=== PATIENT | female | born 1960 | race Caucasian/White ===

== ENCOUNTER 2017-03-18 21:49 | Observation (INO) | payer OTHER ==
[2017-03-18] MEDS ORDERED: SODIUM CHLORIDE 0.9% 500 ML IV STA (22:38)
[2017-03-18] MEDS ORDERED: LORazepam 2 MG/ML SYRINGE IV STA (22:38)
[2017-03-18] MEDS ORDERED: HYDROmorphone 1 MG/ML 1 ML SYRINGE IVP STA (22:38)
[2017-03-18] MEDS ORDERED: KETOROLAC 30 MG/ML 1 ML VIAL IVP STA (23:19)
[2017-03-18] MEDS ORDERED: ORPHENADRINE 30 MG/ML 2 ML VIAL IM STA (23:20)
[2017-03-18 23:21] LABS: Anisocytosis Slight; CH 24.8; CHCM 30.8; HCT 23.4 % (34.0-46.0); HGB 7.4 gm/dL (11.4-16.0); Hypochromasia Moderate; MCH 25.6 pg (25.0-35.0); MCHC 31.8 g/dL (31.0-37.0); MCV 80.7 fL (80.0-100.0); Mean Platelet Volume 6.8; Microcytosis Slight; RDW 16.7 % (11.5-15.5); WBC 4.2 k/uL (3.8-10.6); WBC (Perox) 4.45
[2017-03-18 23:38] LABS: Add Differential Manual Differential
[2017-03-18 23:40] LABS: Manual Review Performed; Nucleated Red Blood Cells 0 /100 WBC (0-0); Total Cells Counted 100
[2017-03-19 00:01] LABS: Anisocytosis Slight; Basophils % (A) 0 %; CH 25.2; CHCM 32.6; Eosinophils # (A) 0.2 k/uL (0-0.7); Eosinophils % (A) 3 %; HCT 39.7 % (34.0-46.0); HDW 2.81; Luc % (Auto) 1; Lymphocytes # (A) 1.7 k/uL (1.0-4.8); Lymphocytes % (A) 19 %; MCHC 32.3 g/dL (31.0-37.0); MCV 77.4 fL (80.0-100.0); Microcytosis Slight; Monocytes # (A) 0.5 k/uL (0-1.0); Monocytes % (A) 5 %; Neutrophils # (A) 6.3 k/uL (1.3-7.7); Neutrophils % (A) 72 %; RBC 5.12 m/uL (3.80-5.40); RDW 16.8 % (11.5-15.5); WBC 8.8 k/uL (3.8-10.6); WBC (Perox) 8.92
--- NOTE | 2017-03-19 00:03 | ED ---
General Adult HPI - General Chief complaint: Chest Pain Stated complaint: Chest Pain Time Seen by Provider: 03/18/17 22:17 Source: patient Mode of arrival: wheelchair Limitations: no limitations - History of Present Illness Initial comments: This patient is a 56-year-old woman who presents with complaint of having right shoulder pain and also spasms to her neck, back, and chest wall. The patient states that this been going on since she had a right shoulder replacement in September, by Dr. Staton. The patient states that she has had MRI of the neck and back, neurology consultation, resulting in her starting on gabapentin, and pain management consultation. The patient states that none of this seems to be helping and as a spasming was severe tonight she comes to have pain relief here. The patient denies weakness or numbness of the right upper severity. -: month(s) Location: upper extremity (Right) Severity scale (1-10): 10 Quality: aching Consistency: constant Improves with: none Worsens with: none Associated Symptoms: denies other symptoms Treatments Prior to Arrival: none - Related Data Home Medications Medication Instructions Recorded Confirmed Amitriptyline HCl 25 mg PO DAILY 04/23/16 03/18/17 Albuterol Sulfate [Proventil Hfa] 2 puff INHALATION RT-Q4H PRN 04/24/16 03/18/17 Ibuprofen [Motrin] 800 mg PO Q8H PRN 04/24/16 03/18/17 Fexofenadine HCl 180 mg PO DAILY 05/14/16 03/18/17 Fluticasone Propionate 1 spray EA NOSTRIL DAILY 07/06/16 03/18/17 HYDROcodone/APAP 5-325MG [[place] 5] 1 tab PO Q8H PRN 07/06/16 03/18/17 Gabapentin [Neurontin] 300 mg PO TID 03/18/17 03/18/17 Metoclopramide (Unknown Dose) 1 tab PO Q8H 03/18/17 03/18/17 Tetrahydrozoline 0.05% Ophth 1 drop BOTH EYES QID PRN 03/18/17 03/18/17 [Visine Eye Drops] Allergies Allergy/AdvReac Type Severity Reaction Status Date / Time diclofenac sodium Allergy Rash/Hives Verified 03/18/17 21:56 [From Voltaren] hydrocodone bitartrate Allergy Unknown Verified 03/18/17 21:56 [From Vicodin] Iodinated Contrast Media - Allergy Unknown Verified 03/18/17 21:56 Oral and [Iodinated Contrast Media - IV Dye] latex Allergy Rash/Hives Verified 03/18/17 21:56 lorazepam Allergy Dyspnea Verified 03/18/17 21:56 Opioids - Morphine Analogues Allergy Unknown Verified 03/18/17 21:56 Sulfa (Sulfonamide Allergy Dyspnea Verified 03/18/17 21:56 Antibiotics) temazepam Allergy Unknown Verified 03/18/17 21:56 tramadol Allergy Unknown Verified 03/18/17 21:56 trazodone Allergy Rash/Hives Verified 03/18/17 21:56 zolpidem tartrate Allergy Unknown Verified 03/18/17 21:56 [From Ambien] diazepam [From Valium] AdvReac Diarrhea Verified 03/18/17 21:56 povidone-iodine AdvReac Unknown Verified 03/18/17 21:56 [From Betadine] soap [From Betadine] AdvReac Unknown Verified 03/18/17 21:56 Review of Systems ROS Statement: Those systems with pertinent positive or pertinent negative responses have been documented in the HPI. ROS Other: All systems not noted in ROS Statement are negative. Constitutional: Denies: fever, chills, weakness Respiratory: Denies: cough, dyspnea Cardiovascular: Denies: chest pain, palpitations, syncope Gastrointestinal: Denies: abdominal pain, nausea, vomiting Genitourinary: Denies: dysuria Musculoskeletal: Reports: as per HPI, back pain, arthralgia, myalgia. Denies: joint swelling Skin: Denies: rash Neurological: Denies: headache, weakness, numbness, paresthesias Past Medical History Past Medical History: Asthma Additional Past Medical History / Comment(s): chronic back pain, constipation, ibs, sciatica, on metformin for weight loss History of Any Multi-Drug Resistant Organisms: None Reported Past Surgical History: Appendectomy, Cholecystectomy, Orthopedic Surgery Additional Past Surgical History / Comment(s): arm and lower leg, facial sx, c -section Past Anesthesia/Blood Transfusion Reactions: No Reported Reaction Past Psychological History: Anxiety, Panic Disorder, PTSD Smoking Status: Never smoker Past Alcohol Use History: None Reported Past Drug Use History: None Reported - Past Family History Father Family Medical History: Myocardial Infarction ([place]) Additional Family Medical History / Comment(s): 4 bypasses, pacemaker Mother Family Medical History: No Reported History General Exam Limitations: no limitations Course Vital Signs 03/18/17 03/18/17 03/18/17 21:53 22:03 23:00 Temperature 98.0 F Pulse Rate 137 H 117 H 92 Respiratory 18 20 18 Rate Blood Pressure 143/88 159/103 140/80 O2 Sat by Pulse 97 97 96 Oximetry 03/19/17 00:00 Temperature Pulse Rate 97 Respiratory 18 Rate Blood Pressure 155/76 O2 Sat by Pulse 97 Oximetry Medical Decision Making - Lab Data Result diagrams: 03/18/17 23:50 03/18/17 23:50 Lab Results 03/18/17 03/18/17 03/18/17 Range/Units 22:51 23:00 23:34 WBC 4.2 (3.8-10.6) k/uL RBC 2.90 L (3.80-5.40) m/uL Hgb 7.4 L (11.4-16.0) gm/dL Hct 23.4 L (34.0-46.0) % MCV 80.7 (80.0-100.0) fL MCH 25.6 (25.0-35.0) pg MCHC 31.8 (31.0-37.0) g/dL RDW 16.7 H (11.5-15.5) % Plt Count 145 L (150-450) k/uL Neutrophils % Not Reportable Neutrophils % (Manual) 66.0 % Lymphocytes % Not Reportable Lymphocytes % (Manual) 28.0 % Monocytes % Not Reportable Monocytes % (Manual) 4.0 % Eosinophils % Not Reportable Eosinophils % (Manual) 2.0 % Basophils % Not Reportable Neutrophils # Not Reportable Neutrophils # (Manual) 2.8 (1.3-7.7) k/uL Lymphocytes # Not Reportable Lymphocytes # (Manual) 1.2 (1.0-4.8) k/uL Monocytes # Not Reportable Monocytes # (Manual) 0.2 (0-1.0) k/uL Eosinophils # Not Reportable Eosinophils # (Manual) 0.1 (0-0.7) k/uL Basophils # Not Reportable Nucleated RBCs 0 (0-0) /100 WBC Manual Slide Review Performed Hypochromasia Moderate Anisocytosis Slight Microcytosis Slight ESR Cancelled 9 D-Dimer 0.72 H (<0.60) mg/L FEU Sodium (137-145) mmol/L Potassium (3.5-5.1) mmol/L Chloride (98-107) mmol/L Carbon Dioxide (22-30) mmol/L Anion Gap mmol/L BUN (7-17) mg/dL Creatinine (0.52-1.04) mg/dL Est GFR (MDRD) Af Amer (>60 ml/min/1.73 sqM) Est GFR (MDRD) Non-Af (>60 ml/min/1.73 sqM) Glucose (74-99) mg/dL Calcium (8.4-10.2) mg/dL C-Reactive Protein (<10.0) mg/L 03/18/17 03/18/17 Range/Units 23:50 23:50 WBC 8.8 (3.8-10.6) k/uL RBC 5.12 (3.80-5.40) m/uL Hgb 12.8 D (11.4-16.0) gm/dL Hct 39.7 (34.0-46.0) % MCV 77.4 L (80.0-100.0) fL MCH 25.0 (25.0-35.0) pg MCHC 32.3 (31.0-37.0) g/dL RDW 16.8 H (11.5-15.5) % Plt Count 279 (150-450) k/uL Neutrophils % 72 Neutrophils % (Manual) % Lymphocytes % 19 Lymphocytes % (Manual) % Monocytes % 5 Monocytes % (Manual) % Eosinophils % 3 Eosinophils % (Manual) % Basophils % 0 Neutrophils # 6.3 Neutrophils # (Manual) (1.3-7.7) k/uL Lymphocytes # 1.7 Lymphocytes # (Manual) (1.0-4.8) k/uL Monocytes # 0.5 Monocytes # (Manual) (0-1.0) k/uL Eosinophils # 0.2 Eosinophils # (Manual) (0-0.7) k/uL Basophils # 0.0 Nucleated RBCs (0-0) /100 WBC Manual Slide Review Hypochromasia Anisocytosis Slight Microcytosis Slight ESR D-Dimer (<0.60) mg/L FEU Sodium 143 (137-145) mmol/L Potassium 4.3 (3.5-5.1) mmol/L Chloride 109 H (98-107) mmol/L Carbon Dioxide 22 (22-30) mmol/L Anion Gap 12 mmol/L BUN 20 H (7-17) mg/dL Creatinine 0.70 (0.52-1.04) mg/dL Est GFR (MDRD) Af Amer >60 (>60 ml/min/1.73 sqM) Est GFR (MDRD) Non-Af >60 (>60 ml/min/1.73 sqM) Glucose 113 H (74-99) mg/dL Calcium 10.1 (8.4-10.2) mg/dL C-Reactive Protein 11.4 H (<10.0) mg/L Disposition Clinical Impression: Chest pain, Pulmonary nodule, right Disposition: ADMITTED IP TO THIS HOSP Condition: Fair Referrals: Sheela Rojas MD [Primary Care Provider] - 1-2 days
[2017-03-19 00:10] LABS: HGB 12.8 gm/dL (11.4-16.0)
[2017-03-19 00:24] LABS: Anion Gap 12 mmol/L; Blood Urea Nitrogen 20 mg/dL (7-17); C Reactive Protein 11.4 mg/L (<10.0); Calcium 10.1 mg/dL (8.4-10.2); Carbon Dioxide 22 mmol/L (22-30); Chloride 109 mmol/L (98-107); Glucose 113 mg/dL (74-99); Non-African American GFR(MDRD) >60 (>60 ml/min/1.73 sqM); Potassium 4.3 mmol/L (3.5-5.1); Sodium 143 mmol/L (137-145)
[2017-03-19] MEDS ORDERED: RX INFO: IV CONTRAST WAS GIVEN 1 EACH MISC MISCELLANE PRN (00:33)
[2017-03-19] MEDS ORDERED: methylPREDNISolone SOD SUCCI 125 MG/2 ML VIAL IV STA (00:34)
[2017-03-19] MEDS ORDERED: FAMOTIDINE 20 MG/2 ML VIAL IV STA (00:34)
[2017-03-19] MEDS ORDERED: diphenhydrAMINE 50 MG/ML 1 ML VIAL IVP STA (00:34)
[2017-03-19] MEDS ORDERED: HYDROmorphone 1 MG/ML 1 ML SYRINGE IVP STA (01:01)
--- NOTE | 2017-03-19 02:37 | CT ---
INDICATION: Chest pain TECHNIQUE: CT acquisition was performed through the chest per institutional CT angiogram protocol following the administration of IV contrast. Multiplanar reformatted images including coronal and sagittal MIPS reconstructed images were provided. This CT exam was performed using one or more of the following dose reduction techniques: automated exposure control, adjustment of the mA and/or kV according to patient size, and/or use of iterative reconstruction technique. DOSIMETRY: DLP 755.70 mGy-cm; CTDIvol 122.70 mGy. COMPARISON: Chest radiograph 07/06/16 FINDINGS: Technically suboptimal examination due to transient interruption of contrast. No evidence of large central pulmonary embolism. Subsegmental branch vessels are inadequately evaluated. Normal caliber main pulmonary artery. No evidence of right heart strain. Thoracic aorta normal in course and caliber. There is cardiomegaly without evidence of pericardial effusion. There is no adenopathy by size criteria. There is a small sliding-type hiatal hernia. There are regional subpleural reticulations in the bilateral lower lobes, right middle lobe, and bilateral upper lobes. There are multiple scattered pulmonary micronodules. There is a 3 mm pulmonary micronodule in the right upper lobe (7-55). There is a 3 mm subpleural pulmonary micronodule in the right middle lobe and a 3 mm subpleural nodule in the lingula (7-73). There is an 8 mm subpleural pulmonary nodule in the right middle lobe (7-79. There are subpleural pulmonary nodules in the left lower lobe measuring 4 mm (7-91) and 5 mm (7-93). There is no pleural effusion or pneumothorax. Limited visualization of the upper abdomen demonstrates hepatomegaly and steatosis, prior cholecystectomy, and mild spinal likely measuring 13.3 cm. There are no acute osseous findings. IMPRESSION: 1. Technically suboptimal exam due to transient interruption of contrast. No evidence of central pulmonary embolus. Subsegmental emboli not excluded. 2. Multifocal bilateral subpleural reticulations, concerning for early interstitial lung disease such as UIP, NSIP, or DIP. Consider further workup in coordination with pulmonology consultation. 3. Multiple pulmonary nodules, as detailed above, the largest in the right middle lobe measuring 8 mm. Correlate with risk factors. CT follow-up in 6-12 months is recommended.
[2017-03-19] MEDS ORDERED: ONDANSETRON 4 MG/2 ML VIAL IVP PRN (02:47)
[2017-03-19] MEDS ORDERED: NALOXONE 0.4 MG/ML 1 ML VIAL IV PRN (02:47)
[2017-03-19] MEDS ORDERED: IBUPROFEN 400 MG TAB PO PRN (02:47)
[2017-03-19] MEDS ORDERED: DOCUSATE 100 MG CAP PO PRN (02:47)
[2017-03-19] MEDS ORDERED: SODIUM CHLORIDE 0.9% 1,000 ML IV SCH (03:00)
[2017-03-19] MEDS ORDERED: BACLOFEN 10 MG TAB PO PRN (03:04)
[2017-03-19 04:21] VITALS: BMI 33.3
[2017-03-19] MEDS: MORPHINE SULFATE 4 MG/ML SYRINGE IV PRN ×3 (04:33→13:46)
[2017-03-19] MEDS ORDERED: diphenhydrAMINE 50 MG/ML 1 ML VIAL IVP PRN (04:43)
[2017-03-19] MEDS: HYDROcodone/APAP 5-325MG 1 EACH TAB PO PRN ×2 (06:59→12:08)
[2017-03-19 07:16] VITALS: BP 159/74; PULSE 93; RESP 18; TEMP 97.9
[2017-03-19] MEDS: HEPARIN SODIUM,PORCINE 5,000 UNIT/ML 1 ML VIAL SQ SCH ×2 (08:12→16:21)
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
[2017-03-19] MEDS ORDERED: oxyCODONE-APAP 7.5-325MG 1 EACH TAB PO PRN (15:54)
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
--- NOTE | 2017-03-19 21:44 | HP ---
This is H&P and Discharge summary. DATE OF ADMISSION: 03/19/2017 Patient is a non-Estonian speaking female, does speak broken Estonian, came in with complaints of severe right shoulder pain. Patient has a rotator cuff surgery by Dr. Staton and the patient apparently complained of shortness of breath as well for which although patient does not have any objective signs of respiratory distress or respiratory failure. The patient was evaluated by pulmonology also, ruled out pulmonary embolism. Her main issue was severe spasms in the right hand and unable to lift up the hand and patient was referred to pain management clinic that is Dr. Stevens's clinic and patient had multiple interventions and imaging studies in the right hand and patient is basically admitted for pain management and neurology was consulted here. Patient is still complaining of spasms. All the work-up is negative except the patient has mostly musculoskeletal issues. Patient will be discharged on Percocet and Soma. Extensive counseling regarding excessive use of these medications was provided and patient initially, we had extensive discussion regarding narcotic over use was provided. Patient also takes medications for opiate-induced constipation. Last bowel movement was yesterday. After extensive counseling regarding the over use of narcotics, the patient will be discharged on Percocet and soma for her muscle spasms ( ). Patient also does take anti-inflammatory. Patient is supposed to take Cymbalta for neuropathic pain which she is not taking. Patient does take Robaxin for spasms and also Mobic for pain. REVIEW OF SYSTEMS: CONSTITUTIONAL: No fever, no malaise, no fatigue. HEENT: No recent visual problems or hearing problems. Denied any sore throat. CARDIOVASCULAR: No chest pain, orthopnea, PND, no palpitations, no syncope. PULMONARY: No shortness of breath, no cough, no hemoptysis. GASTROINTESTINAL: No diarrhea, no nausea, no vomiting, no abdominal pain. Normoactive bowel sounds. NEUROLOGICAL: No headaches, no weakness, no numbness. HEMATOLOGICAL: Denies any bleeding or petechiae. GENITOURINARY: Denies any burning micturition, frequency, or urgency. MUSCULOSKELETAL/RHEUMATOLOGICAL: as described in history of present illness. ENDOCRINE: Denies any polyuria or polydipsia. The rest of the 14 point review of systems is negative. PAST MEDICAL HISTORY: Asthma, severe osteoarthritis. Chronic low back pain and constipation, opiate-induced constipation for which patient takes Linzess and sciatic in the past. SOCIAL HISTORY: Denied any smoking, alcohol abuse. FAMILY HISTORY: Father had myocardial infarction. PHYSICAL EXAMINATION: VITAL SIGNS: Temperature 97.9, pulse of 93, respiratory rate of 18, blood pressure is 159/74, saturating at 97% on room air. GENERAL: The patient is alert and oriented x3, not in any acute distress. Well developed, well nourished. HEENT: Pupils are round and equally reacting to light. EOMI. No scleral icterus. No conjunctival pallor. Normocephalic, atraumatic. No pharyngeal erythema. No thyromegaly. CARDIOVASCULAR: S1 and S2 present. No murmurs, rubs, or gallops. PULMONARY: Chest is clear to auscultation, no wheezing or crackles. ABDOMEN: Soft, nontender, nondistended, normoactive bowel sounds. No palpable organomegaly. MUSCULOSKELETAL: Passive and active motions are restricted in the right hand. I did not see any active muscle spasms. Patient has a scar consistent with her previous rotator cuff surgery. EXTREMITIES: No cyanosis, clubbing, or pedal edema. NEUROLOGICAL: Gross neurological examination did not reveal any focal deficits. SKIN: No rashes. LABORATORY DATA: CBC, CMP: No significant abnormality. CT angio of the chest negative for pulmonary embolism. ASSESSMENT AND PLAN: 1. Right shoulder pain management as mentioned above patient will be discharged today. 2. Dyspnea secondary to anxiety. 3. Bronchial asthma without any acute exacerbation. 4. Constipation opiate and use for which patient is on Linzess. 5. Posttraumatic stress disorder. 6. Follow up with primary care physician psychiatrist as an outpatient. Patient will be discharged today with follow with Dr. Stevens, Dr. Sheela Rojas, activity as tolerated. Regular diet. Patient is on a lot of muscle relaxants and antidepressants and opiates. Counseling regarding over usage of these medications was provided. HERMAN
== END 2017-03-19 18:17 | disposition home or self-care (01) ==
LOC: EC 21:49 → 3OBS 03-19 02:47
PROVIDERS: ADMIT Internal Medicine; ATTEND Internal Medicine
DX: R07.89 Other chest pain (principal); M62.830 Muscle spasm of back; M25.511 Pain in right shoulder; J45.909 Unspecified asthma, uncomplicated; F43.10 Post-traumatic stress disorder, unspecified; F41.0 Panic disorder [episodic paroxysmal anxiety]; K58.9 Irritable bowel syndrome, unspecified; M54.5 Low back pain; M54.30 Sciatica, unspecified side; G89.29 Other chronic pain; R91.1 Solitary pulmonary nodule; M62.838 Other muscle spasm; M19.90 Unspecified osteoarthritis, unspecified site; E66.9 Obesity, unspecified; K59.03 Drug induced constipation; T40.605A Adverse effect of unspecified narcotics, initial encounter; Z68.33 Body mass index [BMI] 33.0-33.9, adult; Z96.611 Presence of right artificial shoulder joint; Z79.899 Other long term (current) drug therapy; Z79.84 Long term (current) use of oral hypoglycemic drugs; Z88.5 Allergy status to narcotic agent; Z82.49 Family history of ischemic heart disease and other diseases of the circulatory system; Z88.2 Allergy status to sulfonamides; Z88.8 Allergy status to other drugs, medicaments and biological substances; Z91.041 Radiographic dye allergy status; Z79.51 Long term (current) use of inhaled steroids
CPT/HCPCS: 96376 ×2; 96372; 96375 ×3; 96361; 96374; 99285; 36415; 85379; 80048; 85652; 85025; 86140; 71275; G0378; J2270; J1200; J1644; J2360; J2930; Q9967; J1885; J1170 ×2

== ENCOUNTER 2017-03-23 17:01 | Emergency (ER) | payer OTHER ==
[2017-03-23] MEDS ORDERED: MORPHINE SULFATE 4 MG/ML SYRINGE IVP STA (18:38)
[2017-03-23] MEDS ORDERED: DIAZEPAM 5 MG/ML 2 ML SYRINGE IVP STA (18:38)
[2017-03-23 18:55] LABS: Anisocytosis Slight; Basophils % (A) 1 %; CHCM 30.5; Eosinophils # (A) 0.2 k/uL (0-0.7); Eosinophils % (A) 3 %; HDW 2.56; HGB 13.8 gm/dL (11.4-16.0); Hypochromasia Moderate; Luc # (Auto) 0.18; Luc % (Auto) 2; Lymphocytes # (A) 2.4 k/uL (1.0-4.8); Lymphocytes % (A) 26 %; MCH 25.7 pg (25.0-35.0); MCHC 31.3 g/dL (31.0-37.0); MCV 82.2 fL (80.0-100.0); Mean Platelet Volume 6.8; Monocytes # (A) 0.5 k/uL (0-1.0); Monocytes % (A) 5 %; Neutrophils # (A) 5.9 k/uL (1.3-7.7); Neutrophils % (A) 64 %; RBC 5.35 m/uL (3.80-5.40); RDW 16.8 % (11.5-15.5); WBC 9.2 k/uL (3.8-10.6); WBC (Perox) 8.84
[2017-03-23 19:15] LABS: Anion Gap 13 mmol/L; Blood Urea Nitrogen 17 mg/dL (7-17); Carbon Dioxide 26 mmol/L (22-30); Chloride 105 mmol/L (98-107); Glucose 131 mg/dL (74-99); Non-African American GFR(MDRD) >60 (>60 ml/min/1.73 sqM); Sodium 144 mmol/L (137-145)
[2017-03-23] MEDS ORDERED: KETOROLAC 30 MG/ML 1 ML VIAL IVP STA ×2 (19:52→20:00)
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
[2017-03-23 21:14] VITALS: BP 142/72; PULSE 106; RESP 20; TEMP 98.5
== END 2017-03-23 21:18 | disposition home or self-care (01) ==
LOC: EC 17:01
DX: F41.9 Anxiety disorder, unspecified (principal); M62.830 Muscle spasm of back; J45.909 Unspecified asthma, uncomplicated; M19.90 Unspecified osteoarthritis, unspecified site; Z88.2 Allergy status to sulfonamides; Z88.6 Allergy status to analgesic agent; Z91.040 Latex allergy status; Z91.041 Radiographic dye allergy status; Z88.5 Allergy status to narcotic agent; Z88.8 Allergy status to other drugs, medicaments and biological substances; Z88.3 Allergy status to other anti-infective agents; Z79.51 Long term (current) use of inhaled steroids; Z79.84 Long term (current) use of oral hypoglycemic drugs; Z79.1 Long term (current) use of non-steroidal anti-inflammatories (NSAID); Z79.899 Other long term (current) drug therapy
CPT/HCPCS: 99284; 96374; 96375 ×2; 36415; 93005; 80048; 85025; J2270; J3360; J1885

== ENCOUNTER 2017-04-10 04:09 | Emergency (ER) | payer OTHER ==
[2017-04-10] MEDS ORDERED: MORPHINE SULFATE 4 MG/ML SYRINGE IM STA (04:36)
[2017-04-10] MEDS ORDERED: ORPHENADRINE 30 MG/ML 2 ML VIAL IM STA (04:36)
[2017-04-10 05:29] VITALS: RESP 18
--- NOTE | 2017-04-10 05:35 | ED ---
General Adult HPI - General Chief complaint: Shortness of Breath Stated complaint: SOB/Stiffness Time Seen by Provider: 04/10/17 04:15 Source: patient Mode of arrival: wheelchair Limitations: no limitations - History of Present Illness Initial comments: This patient is a 56-year-old woman who presents tonight for a constellation of symptoms. She is having spasms to the back shoulder and chest on the right side , she feels like she is having a hard time catching her breath, and she is feeling sweaty. The patient does note that she has a history of chronic pain to the right neck and shoulder. She has been taking [place] 10 mg for a long time and has been out of this for going on 2 days now. She was seen here for similar symptoms approximately 2 weeks ago. One of the problems is that the patient is in the process of changing neurologists, because she had been seen Dr. Stevens and he wanted to treat her with an implantable pain pump, but she would prefer to avoid this procedure and so she was scheduled with the neurologist in [place] on but had been not feeling well and can make the trip there. She does have one with him on Wednesday. -: hour(s) Location: chest, back, right, upper extremity Severity scale (1-10): 10 Quality: aching Consistency: constant Improves with: none Worsens with: none Associated Symptoms: denies other symptoms Treatments Prior to Arrival: none - Related Data Home Medications Medication Instructions Recorded Confirmed Amitriptyline HCl 25 mg PO QID 04/23/16 03/23/17 Albuterol Sulfate [Proventil Hfa] 2 puff INHALATION RT-Q4H PRN 04/24/16 03/23/17 Ibuprofen [Motrin] 800 mg PO TID PRN 04/24/16 03/23/17 Fexofenadine HCl 180 mg PO DAILY 05/14/16 03/23/17 Fluticasone Propionate 1 spray EA NOSTRIL DAILY 07/06/16 03/23/17 Gabapentin [Neurontin] 300 mg PO TID 03/18/17 03/23/17 Tetrahydrozoline 0.05% Ophth 1 drop BOTH EYES QID PRN 03/18/17 03/23/17 [Visine Eye Drops] ALPRAZolam [Xanax] 1 mg PO TID PRN 03/19/17 03/23/17 DULoxetine HCL [Cymbalta] 30 mg PO BID 03/19/17 03/23/17 Linaclotide [Linzess] 290 mcg PO DAILY 03/19/17 03/23/17 Meloxicam [Mobic] 7.5 mg PO DAILY 03/19/17 03/23/17 Methocarbamol [Robaxin-750] 750 mg PO Q8H PRN 03/19/17 03/23/17 Naloxegol Oxalate [Movantik] 25 mg PO QAM 03/19/17 03/23/17 hydrOXYzine PAMOATE [Vistaril] 25 - 50 mg PO Q4-6H PRN 03/19/17 03/23/17 metFORMIN HCL [Metformin HCl] 500 mg PO DAILY 03/19/17 03/23/17 Previous Rx's Medication Instructions Recorded Baclofen [Lioresal] 10 mg PO TID PRN #20 tab 03/19/17 Carisoprodol [Soma] 350 mg PO TID PRN #20 tab 03/19/17 oxyCODONE-APAP 7.5-325MG [Percocet 1 tab PO Q6HR PRN #30 tab 03/19/17 7.5-325 mg] Baclofen 10 mg PO TID PRN #20 tab 03/23/17 Carisoprodol [Soma] 350 mg PO TID #14 tab 03/23/17 oxyCODONE HCL/ACETAMINOPHEN 1 tab PO Q6HR #14 tab 03/23/17 [Percocet 7.5-325 mg] Hydrocodone/Acetaminophen [[place] 1 each PO Q6HR PRN #8 tab 04/10/17 5-325] Allergies Allergy/AdvReac Type Severity Reaction Status Date / Time diclofenac sodium Allergy Rash/Hives Verified 04/10/17 04:21 [From Voltaren] hydrocodone bitartrate Allergy Unknown Verified 04/10/17 04:21 [From Vicodin] Iodinated Contrast Media - Allergy Swelling Verified 04/10/17 04:21 Oral and [Iodinated Contrast Media - IV Dye] latex Allergy Rash/Hives Verified 04/10/17 04:21 lorazepam Allergy Dyspnea Verified 04/10/17 04:21 Sulfa (Sulfonamide Allergy Anaphylaxis Verified 04/10/17 04:21 Antibiotics) temazepam Allergy Rash/Hives Verified 04/10/17 04:21 tramadol Allergy Rash/Hives Verified 04/10/17 04:21 trazodone Allergy Rash/Hives Verified 04/10/17 04:21 zolpidem tartrate Allergy Itching Verified 04/10/17 04:21 [From Ambien] diazepam [From Valium] AdvReac Itching Verified 04/10/17 04:21 povidone-iodine AdvReac Rash/Hives Verified 04/10/17 04:21 [From Betadine] soap [From Betadine] AdvReac Rash/Hives Verified 04/10/17 04:21 Review of Systems ROS Statement: Those systems with pertinent positive or pertinent negative responses have been documented in the HPI. ROS Other: All systems not noted in ROS Statement are negative. Constitutional: Reports: chills, other (Flash) Respiratory: Denies: cough, dyspnea Cardiovascular: Denies: chest pain, palpitations, syncope Gastrointestinal: Reports: nausea. Denies: abdominal pain Genitourinary: Denies: dysuria Musculoskeletal: Reports: arthralgia, myalgia Skin: Denies: rash Neurological: Denies: headache, weakness, numbness, paresthesias Psychiatric: Reports: anxiety Past Medical History Past Medical History: Asthma, Osteoarthritis (OA) Additional Past Medical History / Comment(s): chronic back pain, constipation, ibs, sciatica, on metformin for weight loss History of Any Multi-Drug Resistant Organisms: None Reported Past Surgical History: Appendectomy, Cholecystectomy, Orthopedic Surgery Additional Past Surgical History / Comment(s): arm and lower leg, facial sx, c -section Past Anesthesia/Blood Transfusion Reactions: No Reported Reaction Past Psychological History: Anxiety, Panic Disorder, PTSD Smoking Status: Never smoker Past Alcohol Use History: None Reported Past Drug Use History: None Reported - Past Family History Father Family Medical History: Myocardial Infarction ([place]) Additional Family Medical History / Comment(s): 4 bypasses, pacemaker Mother Family Medical History: No Reported History General Exam Limitations: no limitations General appearance: alert, in distress Head exam: Present: atraumatic, normocephalic Eye exam: Present: normal appearance. Absent: scleral icterus, conjunctival injection Neck exam: Present: normal inspection, full ROM Respiratory exam: Present: normal lung sounds bilaterally, chest wall tenderness. Absent: respiratory distress, wheezes, rales, rhonchi, stridor Cardiovascular Exam: Present: normal rhythm, tachycardia, normal heart sounds. Absent: systolic murmur, diastolic murmur, rubs, gallop GI/Abdominal exam: Present: soft, hyperactive bowel sounds. Absent: distended, tenderness, guarding, rebound, rigid Extremities exam: Present: normal inspection, tenderness (Right shoulder), normal capillary refill. Absent: pedal edema, calf tenderness Back exam: Present: normal inspection. Absent: CVA tenderness (R), CVA tenderness (L) Neurological exam: Present: alert Skin exam: Present: warm, dry, intact, normal color. Absent: rash Course Vital Signs 04/10/17 04/10/17 04/10/17 04:14 04:34 05:28 Temperature 97.7 F Pulse Rate 117 H 90 Respiratory 24 20 18 Rate Blood Pressure 195/95 148/77 O2 Sat by Pulse 91 L 93 L Oximetry 04/10/17 05:47 Temperature 97.5 F L Pulse Rate 91 Respiratory 18 Rate Blood Pressure 137/78 O2 Sat by Pulse 95 Oximetry Disposition Clinical Impression: Chronic pain Disposition: HOME SELF-CARE Condition: Fair Instructions: Chronic Pain (ED) Prescriptions: Hydrocodone/Acetaminophen [[place] 5-325] 1 each PO Q6HR PRN #8 tab PRN Reason: Pain Referrals: Sheela Rojas MD [Primary Care Provider] - 1-2 days
[2017-04-10 05:50] VITALS: BP 137/78; PULSE 91; TEMP 97.5
== END 2017-04-10 05:51 | disposition home or self-care (01) ==
LOC: EC 04:09
DX: G89.29 Other chronic pain (principal); M25.511 Pain in right shoulder; M54.2 Cervicalgia; R06.02 Shortness of breath; R00.0 Tachycardia, unspecified; M19.90 Unspecified osteoarthritis, unspecified site; F41.0 Panic disorder [episodic paroxysmal anxiety]; K58.9 Irritable bowel syndrome, unspecified; Z79.899 Other long term (current) drug therapy; Z79.84 Long term (current) use of oral hypoglycemic drugs; Z79.1 Long term (current) use of non-steroidal anti-inflammatories (NSAID); Z88.5 Allergy status to narcotic agent; Z91.040 Latex allergy status; Z88.2 Allergy status to sulfonamides; Z91.041 Radiographic dye allergy status; Z88.6 Allergy status to analgesic agent; Z88.8 Allergy status to other drugs, medicaments and biological substances; Z91.048 Other nonmedicinal substance allergy status; Z87.19 Personal history of other diseases of the digestive system
CPT/HCPCS: 99284; 96372 ×2; J2270; J2360; 93005

== ENCOUNTER 2017-04-11 09:44 | Emergency (ER) | payer OTHER ==
[2017-04-11 09:52] VITALS: TEMP 98
[2017-04-11] MEDS ORDERED: HYDROmorphone 1 MG/ML 1 ML SYRINGE IM STA (10:58)
--- NOTE | 2017-04-11 11:03 | ED ---
General Adult HPI - General Chief complaint: Recheck/Abnormal Lab/Rx Stated complaint: chronic pain Time Seen by Provider: 04/11/17 10:42 Source: patient, RN notes reviewed Mode of arrival: wheelchair Limitations: no limitations - History of Present Illness Initial comments: 56-year-old female presents to the emergency department with a chief complaint of flareup of her chronic pain. Patient states that she suffers from chronic pain and normally takes baclofen as well as [place]. Patient states she's been IV since . Patient states that Dr. Stevens her neurologist wanted to put her on a morphine drip and she does not want that so she is scheduled a second opinion for tomorrow to further evaluate her pain situation. Patient states that now her pain has gotten so intense She is not her pain medication. Patient states her muscle spasms which is chronic squeeze her body make her feel like it's hard to breathe. Patient states is exactly like her typical flareup pain. Patient states that her pain at home which is not helping so she thought that she should be evaluated.Patient denies any recent fever, chills, shortness of breath, chest pain, back pain, abdominal pain, nausea vomiting, numbness or tingling, dysuria or hematuria, constipation or diarrhea, headaches or visual changes, or any other current symptoms. - Related Data Home Medications Medication Instructions Recorded Confirmed Amitriptyline HCl 25 mg PO QID 04/23/16 04/11/17 Albuterol Sulfate [Proventil Hfa] 2 puff INHALATION RT-Q4H PRN 04/24/16 04/11/17 Ibuprofen [Motrin] 800 mg PO TID PRN 04/24/16 04/11/17 Fexofenadine HCl 180 mg PO DAILY 05/14/16 04/11/17 Fluticasone Propionate 1 spray EA NOSTRIL DAILY 07/06/16 04/11/17 Gabapentin [Neurontin] 300 mg PO TID 03/18/17 04/11/17 Tetrahydrozoline 0.05% Ophth 1 drop BOTH EYES QID PRN 03/18/17 04/11/17 [Visine Eye Drops] ALPRAZolam [Xanax] 1 mg PO TID PRN 03/19/17 04/11/17 DULoxetine HCL [Cymbalta] 30 mg PO BID 03/19/17 04/11/17 Linaclotide [Linzess] 290 mcg PO DAILY 03/19/17 04/11/17 Meloxicam [Mobic] 7.5 mg PO DAILY 03/19/17 04/11/17 Methocarbamol [Robaxin-750] 750 mg PO Q8H PRN 03/19/17 04/11/17 Naloxegol Oxalate [Movantik] 25 mg PO QAM 03/19/17 04/11/17 hydrOXYzine PAMOATE [Vistaril] 25 - 50 mg PO Q4-6H PRN 03/19/17 04/11/17 metFORMIN HCL [Metformin HCl] 500 mg PO DAILY 03/19/17 04/11/17 Hydrocodone/Acetaminophen [[place] 1 tab PO Q6HR PRN 04/11/17 04/11/17 5-325] Previous Rx's Medication Instructions Recorded Baclofen [Lioresal] 10 mg PO TID PRN #20 tab 03/19/17 Carisoprodol [Soma] 350 mg PO TID PRN #20 tab 03/19/17 oxyCODONE-APAP 7.5-325MG [Percocet 1 tab PO Q6HR PRN #30 tab 03/19/17 7.5-325 mg] Allergies Allergy/AdvReac Type Severity Reaction Status Date / Time diclofenac sodium Allergy Rash/Hives Verified 04/11/17 10:13 [From Voltaren] hydrocodone bitartrate Allergy Unknown Verified 04/11/17 10:13 [From Vicodin] Iodinated Contrast Media - Allergy Swelling Verified 04/11/17 10:13 Oral and [Iodinated Contrast Media - IV Dye] latex Allergy Rash/Hives Verified 04/11/17 10:13 lorazepam Allergy Dyspnea Verified 04/11/17 10:13 Sulfa (Sulfonamide Allergy Anaphylaxis Verified 04/11/17 10:13 Antibiotics) temazepam Allergy Rash/Hives Verified 04/11/17 10:13 tramadol Allergy Rash/Hives Verified 04/11/17 10:13 trazodone Allergy Rash/Hives Verified 04/11/17 10:13 zolpidem tartrate Allergy Itching Verified 04/11/17 10:13 [From Ambien] diazepam [From Valium] AdvReac Itching Verified 06/18/17 10:13 povidone-iodine AdvReac Rash/Hives Verified 04/11/17 10:13 [From Betadine] soap [From Betadine] AdvReac Rash/Hives Verified 04/11/17 10:13 Review of Systems ROS Statement: Those systems with pertinent positive or pertinent negative responses have been documented in the HPI. ROS Other: All systems not noted in ROS Statement are negative. Past Medical History Past Medical History: Asthma, Osteoarthritis (OA) Additional Past Medical History / Comment(s): chronic back pain, constipation, ibs, sciatica, on metformin for weight loss History of Any Multi-Drug Resistant Organisms: None Reported Past Surgical History: Appendectomy, Cholecystectomy, Orthopedic Surgery Additional Past Surgical History / Comment(s): arm and lower leg, facial sx, c -section Past Anesthesia/Blood Transfusion Reactions: No Reported Reaction Past Psychological History: Anxiety, Panic Disorder, PTSD Smoking Status: Never smoker Past Alcohol Use History: None Reported Past Drug Use History: None Reported - Past Family History Father Family Medical History: Myocardial Infarction ([place]) Additional Family Medical History / Comment(s): 4 bypasses, pacemaker Mother Family Medical History: No Reported History General Exam Limitations: no limitations General appearance: alert, in no apparent distress ENT exam: Present: normal exam, mucous membranes moist Neck exam: Present: normal inspection. Absent: tenderness, meningismus, lymphadenopathy Respiratory exam: Present: normal lung sounds bilaterally. Absent: respiratory distress, wheezes, rales, rhonchi, stridor Cardiovascular Exam: Present: regular rate, normal rhythm, normal heart sounds. Absent: systolic murmur, diastolic murmur, rubs, gallop, clicks Back exam: Present: normal inspection, full ROM. Absent: tenderness, rash noted Neurological exam: Present: alert, oriented X3 Psychiatric exam: Present: normal affect, normal mood Skin exam: Present: warm, dry, intact, normal color. Absent: rash Course Vital Signs 04/11/17 09:49 Temperature 98.0 F Pulse Rate 95 Respiratory 20 Rate Blood Pressure 198/108 O2 Sat by Pulse 99 Oximetry Medical Decision Making - Medical Decision Making 56 yo Old female presents with flareup of her chronic pain At this time we give the patient injections and she is having improvement. This time we discussed continuing follow-up tomorrow. All patient's questions. She stated that she understood and she is. She will be discharged home. Disposition Clinical Impression: Chronic pain Disposition: HOME SELF-CARE Condition: Stable Instructions: Chronic Pain (ED) Additional Instructions: Please use medication as discussed. Please follow up with family doctor if symptoms have not improved over the next two days. Please return to the emergency room if your symptoms increase or worsen or for any other concerns. Referrals: Sheela Rojas MD [Primary Care Provider] - 1-2 days Time of Disposition: 11:46
[2017-04-11] MEDS: ORPHENADRINE 30 MG/ML 2 ML VIAL IM STA ×2 (11:12→12:07)
[2017-04-11 12:15] VITALS: BP 166/87; PULSE 98; RESP 18
== END 2017-04-11 12:15 | disposition home or self-care (01) ==
LOC: EC 09:44
DX: G89.29 Other chronic pain (principal); M54.9 Dorsalgia, unspecified; M19.90 Unspecified osteoarthritis, unspecified site; J45.909 Unspecified asthma, uncomplicated; K58.9 Irritable bowel syndrome, unspecified; F41.9 Anxiety disorder, unspecified; F43.10 Post-traumatic stress disorder, unspecified; Z79.1 Long term (current) use of non-steroidal anti-inflammatories (NSAID); Z79.51 Long term (current) use of inhaled steroids; Z79.84 Long term (current) use of oral hypoglycemic drugs; Z79.899 Other long term (current) drug therapy; Z88.2 Allergy status to sulfonamides; Z88.5 Allergy status to narcotic agent; Z88.6 Allergy status to analgesic agent; Z88.8 Allergy status to other drugs, medicaments and biological substances; Z91.040 Latex allergy status; Z91.041 Radiographic dye allergy status; Z91.048 Other nonmedicinal substance allergy status
CPT/HCPCS: 99283; 96372 ×2; J2360; J1170

== ENCOUNTER 2017-04-13 11:51 | Emergency (ER) | payer OTHER ==
[2017-04-13 12:18] VITALS: RESP 18
[2017-04-13] MEDS ORDERED: HYDROcodone/APAP 5-325MG 1 EACH TAB PO STA (12:30)
[2017-04-13] MEDS ORDERED: predniSONE 20 MG TAB PO STA (12:30)
--- NOTE | 2017-04-13 12:37 | ED ---
General Adult HPI - General Chief complaint: Recheck/Abnormal Lab/Rx Stated complaint: Itchy skin Time Seen by Provider: 04/13/17 12:09 Source: patient, family, RN notes reviewed Mode of arrival: wheelchair Limitations: no limitations - History of Present Illness Initial comments: Patient is a pleasant 56-year-old female presenting to the emergency Department with complaints of fullness of her throat and itchy skin. Patient did see a pain specialist yesterday and was prescribed morphine sulfate. Patient states she has a known ALLERGY to both sulfa and sulfates. Patient has chronic pain. Patient has pain involving her back and sciatica and right shoulder. Patient is to be on [place] without any problems. Patient admits to feeling anxious regarding her pain. Patient repeatedly discusses her pain medication history. - Related Data Home Medications Medication Instructions Recorded Confirmed Amitriptyline HCl 25 mg PO QID 04/23/16 04/13/17 Albuterol Sulfate [Proventil Hfa] 2 puff INHALATION RT-Q4H PRN 04/24/16 04/13/17 Ibuprofen [Motrin] 800 mg PO TID PRN 04/24/16 04/13/17 Fexofenadine HCl 180 mg PO DAILY 05/14/16 04/13/17 Fluticasone Propionate 1 spray EA NOSTRIL DAILY 07/06/16 04/13/17 Gabapentin [Neurontin] 300 mg PO TID 03/18/17 04/13/17 Tetrahydrozoline 0.05% Ophth 1 drop BOTH EYES QID PRN 03/18/17 04/13/17 [Visine Eye Drops] ALPRAZolam [Xanax] 1 mg PO TID PRN 03/19/17 04/13/17 DULoxetine HCL [Cymbalta] 30 mg PO BID 03/19/17 04/13/17 Linaclotide [Linzess] 290 mcg PO DAILY 03/19/17 04/13/17 Meloxicam [Mobic] 7.5 mg PO DAILY 03/19/17 04/13/17 Methocarbamol [Robaxin-750] 750 mg PO Q8H PRN 03/19/17 04/13/17 Naloxegol Oxalate [Movantik] 25 mg PO QAM 03/19/17 04/13/17 hydrOXYzine PAMOATE [Vistaril] 25 - 50 mg PO Q4-6H PRN 03/19/17 04/13/17 metFORMIN HCL [Metformin HCl] 500 mg PO DAILY 03/19/17 04/13/17 Hydrocodone/Acetaminophen [[place] 1 tab PO Q6HR PRN 04/11/17 04/13/17 5-325] Cyclobenzaprine [Flexeril] 10 mg PO TID 04/13/17 04/13/17 Diclofenac Sodium [Voltaren] 75 mg PO BID 04/13/17 04/13/17 Morphine Sulfate Ir [Msir] 15 mg PO Q8H PRN 04/13/17 04/13/17 Previous Rx's Medication Instructions Recorded Baclofen [Lioresal] 10 mg PO TID PRN #20 tab 03/19/17 Carisoprodol [Soma] 350 mg PO TID PRN #20 tab 03/19/17 oxyCODONE-APAP 7.5-325MG [Percocet 1 tab PO Q6HR PRN #30 tab 03/19/17 7.5-325 mg] predniSONE 20 mg PO DAILY #3 tab 04/13/17 Allergies Allergy/AdvReac Type Severity Reaction Status Date / Time diclofenac sodium Allergy Rash/Hives Verified 04/13/17 12:06 [From Voltaren] hydrocodone bitartrate Allergy Unknown Verified 04/13/17 12:06 [From Vicodin] Iodinated Contrast Media - Allergy Swelling Verified 04/13/17 12:06 Oral and [Iodinated Contrast Media - IV Dye] latex Allergy Rash/Hives Verified 04/13/17 12:06 lorazepam Allergy Dyspnea Verified 04/13/17 12:06 Sulfa (Sulfonamide Allergy Anaphylaxis Verified 04/13/17 12:06 Antibiotics) temazepam Allergy Rash/Hives Verified 04/13/17 12:06 tramadol Allergy Rash/Hives Verified 04/13/17 12:06 trazodone Allergy Rash/Hives Verified 04/13/17 12:06 zolpidem tartrate Allergy Itching Verified 04/13/17 12:06 [From Ambien] diazepam [From Valium] AdvReac Itching Verified 04/13/17 12:06 povidone-iodine AdvReac Rash/Hives Verified 04/13/17 12:06 [From Betadine] soap [From Betadine] AdvReac Rash/Hives Verified 04/13/17 12:06 Review of Systems ROS Statement: Those systems with pertinent positive or pertinent negative responses have been documented in the HPI. ROS Other: All systems not noted in ROS Statement are negative. Constitutional: Denies: fever Eyes: Denies: eye pain ENT: Denies: ear pain Respiratory: Denies: cough Cardiovascular: Denies: chest pain Endocrine: Denies: fatigue Gastrointestinal: Denies: abdominal pain Genitourinary: Denies: dysuria Musculoskeletal: Reports: back pain, arthralgia Skin: Denies: rash Neurological: Denies: confusion Past Medical History Past Medical History: Asthma, Osteoarthritis (OA) Additional Past Medical History / Comment(s): chronic back pain, constipation, ibs, sciatica, on metformin for weight loss History of Any Multi-Drug Resistant Organisms: None Reported Past Surgical History: Appendectomy, Cholecystectomy, Orthopedic Surgery Additional Past Surgical History / Comment(s): arm and lower leg, facial sx, c -section Past Anesthesia/Blood Transfusion Reactions: No Reported Reaction Past Psychological History: Anxiety, Panic Disorder, PTSD Smoking Status: Never smoker Past Alcohol Use History: None Reported Past Drug Use History: None Reported - Past Family History Father Family Medical History: Myocardial Infarction ([place]) Additional Family Medical History / Comment(s): 4 bypasses, pacemaker Mother Family Medical History: No Reported History General Exam Limitations: no limitations General appearance: alert, in no apparent distress Head exam: Present: atraumatic Eye exam: Present: normal appearance, PERRL ENT exam: Present: normal oropharynx Neck exam: Present: normal inspection Respiratory exam: Present: normal lung sounds bilaterally. Absent: respiratory distress Cardiovascular Exam: Present: tachycardia GI/Abdominal exam: Present: soft. Absent: tenderness Extremities exam: Present: normal inspection Neurological exam: Present: alert Psychiatric exam: Present: normal affect, normal mood Skin exam: Present: normal color Course Vital Signs 04/13/17 04/13/17 11:53 12:13 Temperature 97.5 F L Pulse Rate 118 H Respiratory 20 18 Rate Blood Pressure 141/83 O2 Sat by Pulse 97 Oximetry EKG Findings - EKG Comments: EKG Findings:: Sinus tachycardia 112. CA 182. QRS 76. QT 338. QTC 461. Normal axis. Normal QRS. No acute ST change. Disposition Clinical Impression: Encounter for medication refill, Allergic reaction Disposition: HOME SELF-CARE Condition: Stable Instructions: Chronic Pain (ED), Medicine Refill (ED) Additional Instructions: Please follow-up with your orthopedic doctor or one of your two pain medication doctors today or tomorrow. Return for worsening or change in symptoms or other concerns. Continue Benadryl Prescriptions: predniSONE 20 mg PO DAILY #3 tab Referrals: Sheela Rojas MD [Primary Care Provider] - 1-2 days Jacob Staton MD [REFERRING] - 1-2 days Chelita Stevens MD [STAFF PHYSICIAN] - 1-2 days
[2017-04-13 12:43] VITALS: BP 171/70; PULSE 108; TEMP 98.4
== END 2017-04-13 12:53 | disposition home or self-care (01) ==
LOC: EC 11:51
DX: T78.40XA Allergy, unspecified, initial encounter (principal); J45.909 Unspecified asthma, uncomplicated; Z88.2 Allergy status to sulfonamides; Z91.040 Latex allergy status; Z88.8 Allergy status to other drugs, medicaments and biological substances; Z88.5 Allergy status to narcotic agent; Z91.041 Radiographic dye allergy status; Z91.09 Other allergy status, other than to drugs and biological substances; Z79.51 Long term (current) use of inhaled steroids; Z79.84 Long term (current) use of oral hypoglycemic drugs; Z79.1 Long term (current) use of non-steroidal anti-inflammatories (NSAID); Z79.899 Other long term (current) drug therapy
CPT/HCPCS: 99283; 93005; J7512

== ENCOUNTER 2017-05-10 19:44 | Emergency (ER) | payer OTHER ==
[2017-05-10 20:01] VITALS: RESP 18; TEMP 99.3
[2017-05-10] MEDS ORDERED: predniSONE 20 MG TAB PO STA (20:21)
[2017-05-10] MEDS ORDERED: HYDROcodone/APAP 5-325MG 1 EACH TAB PO STA (20:21)
[2017-05-10] MEDS ORDERED: KETOROLAC 30 MG/ML 1 ML VIAL IVP STA (20:21)
--- NOTE | 2017-05-10 20:38 | ED ---
Back Pain HPI - General Chief Complaint: Back Pain/Injury Stated Complaint: back pain Source: EMS Limitations: no limitations - History of Present Illness Initial Comments: Patient is a 56-year-old female resents for evaluation for acute on chronic upper back pain. Past medical history as below. Patient has been evaluated are facility several times in the past for identical symptoms. She states that her symptoms are 10 out of 10. Exactly like previous exacerbations. She has been evaluated by multiple physicians in the past. Including pain specialist in other cities, neurologist, family physicians, orthopedic surgeons. She states that there is been no change in her symptom quality or characteristic. However, she states that the pain is more intense. She states that she has some associated nausea. Per chart review, the patient describes having identical symptoms in the past. She states that she's been out of her pain medications over the past week. She states that she does have prescriptions of Flexeril and Soma though. Dr. Stevens is offered an epidural/pain pump in the past but the patient refused. They're trying to get into their previous orthopedic surgeon but is not available until the end of May. The patient states that she cannot wait until then. She currently denies fever, chills, headache, changes in vision, URI symptoms, shortness of breath, cough, chest pain, vomiting, diarrhea, pain or burning with urination. In addition, the patient denies any symptoms suggestive cauda equina. No fevers , no midline tenderness, no numbness to the groin, no urinary or stool incontinence, no change in her numbness or pain to her lower charities. - Related Data Home Medications Medication Instructions Recorded Confirmed Fexofenadine HCl 180 mg PO DAILY 05/14/16 05/10/17 Gabapentin [Neurontin] 300 mg PO TID 03/18/17 05/10/17 Linaclotide [Linzess] 290 mcg PO DAILY 03/19/17 05/10/17 Morphine Sulfate Ir [Msir] 15 mg PO Q8H PRN 04/13/17 05/10/17 Previous Rx's Medication Instructions Recorded Baclofen [Lioresal] 10 mg PO TID PRN #20 tab 03/19/17 Carisoprodol [Soma] 350 mg PO TID PRN #20 tab 03/19/17 Allergies Allergy/AdvReac Type Severity Reaction Status Date / Time diclofenac sodium Allergy Rash/Hives Verified 05/10/17 20:39 [From Voltaren] hydrocodone bitartrate Allergy Unknown Verified 05/10/17 20:39 [From Vicodin] Iodinated Contrast- Oral and Allergy Swelling Verified 05/10/17 20:39 IV Dye [Iodinated Contrast Media - IV Dye] latex Allergy Rash/Hives Verified 05/10/17 20:39 lorazepam Allergy Dyspnea Verified 05/10/17 20:39 Sulfa (Sulfonamide Allergy Anaphylaxis Verified 05/10/17 20:39 Antibiotics) temazepam Allergy Rash/Hives Verified 05/10/17 20:39 tramadol Allergy Rash/Hives Verified 05/10/17 20:39 trazodone Allergy Rash/Hives Verified 05/10/17 20:39 zolpidem tartrate Allergy Itching Verified 05/10/17 20:39 [From Ambien] diazepam [From Valium] AdvReac Itching Verified 05/10/17 20:39 povidone-iodine AdvReac Rash/Hives Verified 05/10/17 20:39 [From Betadine] soap [From Betadine] AdvReac Rash/Hives Verified 05/10/17 20:39 Review of Systems ROS Statement: Those systems with pertinent positive or pertinent negative responses have been documented in the HPI. ROS Other: All systems not noted in ROS Statement are negative. Past Medical History Past Medical History: Asthma, Osteoarthritis (OA) Additional Past Medical History / Comment(s): chronic back pain, constipation, ibs, sciatica, on metformin for weight loss History of Any Multi-Drug Resistant Organisms: None Reported Past Surgical History: Appendectomy, Cholecystectomy, Orthopedic Surgery Additional Past Surgical History / Comment(s): arm and lower leg, facial sx, c -section Past Anesthesia/Blood Transfusion Reactions: No Reported Reaction Past Psychological History: Anxiety, Panic Disorder, PTSD Smoking Status: Never smoker Past Alcohol Use History: None Reported Past Drug Use History: None Reported - Past Family History Father Family Medical History: Myocardial Infarction ([place]) Additional Family Medical History / Comment(s): 4 bypasses, pacemaker Mother Family Medical History: No Reported History General Exam Limitations: no limitations General appearance: alert, in no apparent distress, other (Resting comfortably in the stretcher. We'll sit up from a leg back position and twist her back with no apparent distress.) Head exam: Present: atraumatic, normocephalic, normal inspection Eye exam: Present: normal appearance, PERRL, EOMI. Absent: scleral icterus, conjunctival injection, periorbital swelling ENT exam: Present: normal exam, mucous membranes moist Neck exam: Present: normal inspection. Absent: tenderness, meningismus, lymphadenopathy Respiratory exam: Present: normal lung sounds bilaterally. Absent: respiratory distress, wheezes, rales, rhonchi, stridor Cardiovascular Exam: Present: regular rate, normal rhythm, normal heart sounds. Absent: systolic murmur, diastolic murmur, rubs, gallop, clicks GI/Abdominal exam: Present: soft, normal bowel sounds, other (Abdomen is soft and nontender. No peritoneal signs.). Absent: distended, tenderness, guarding , rebound, rigid Extremities exam: Present: normal inspection, full ROM, normal capillary refill. Absent: tenderness, pedal edema, joint swelling, calf tenderness Back exam: Present: normal inspection, other (No midline cervical/thoracic/ lumbar midline tenderness. She did have some paraspinal tenderness on the right upper back by the scapula.) Neurological exam: Present: alert, oriented X3, CN II-XII intact, other ( Cranial nerves II through XII are grossly intact without focal neurological deficits. She is not altered. 5 out of 5 strength of the upper or lower extremities. Sensation intact in all 4 extremities.) Psychiatric exam: Present: normal affect, normal mood Skin exam: Present: warm, dry, intact, normal color. Absent: rash Course Vital Signs 05/10/17 05/10/17 19:54 21:55 Temperature 99.3 F Pulse Rate 79 82 Respiratory 18 18 Rate Blood Pressure 138/71 162/85 O2 Sat by Pulse 96 97 Oximetry Medical Decision Making - Medical Decision Making 2005: Patient is a 56 year old female who presents with acute on chronic upper back pain. She states that her symptoms are 100% identical to her previous exacerbations. She has no signs or symptoms that are consistent with cauda equina syndrome at this time. I had a lengthy discussion with her and her about the need for only one physician to be prescribing her pain narcotics. They've been having trouble having other physicians fill her pain narcotics. He refused a non-narcotic intervention by Dr. Shuayto. They're trying to get in for evaluation I her orthopedic surgeon who they have preferred in the past. I discussed my hesitancy to provide any long-term narcotic prescriptions until they are evaluated by the orthopedic surgeon which is at the end of May. I stated that I would treat her pain with the regimen that I used on last visit in August 2016 as she stated worked for her in the past. This included a dose of [place] and steroids. The patient's at bedside also requested a shot of Toradol which is also seem to help her in the past. I agreed. I will order basic blood work and an EKG. They're comfortable with this plan. 2045: Reviewed EKG. Normal sinus rhythm at 68. DE 164. QRS 82. QTc 429. No ST changes. Similar to previous EKGs in the past. 2199: Laboratory studies as below. Largely unremarkable or at baseline. I reevaluated the patient. Patient now states that she is having midline chest pain radiating to hger left chest based on her hand movement. Last stress test was 2 years ago. Very confrontational. Frequent interruptions while I was trying to evaluate the patient. Patient now states that she is never had chest pain like this before in the past. I discussed that her troponin was negative and her EKG was nonischemic and similar to previous. Patient adamantly refuses going home. Will order 162 mg chewable aspirin. Page 2 admitting physician per PCP preference. 2240: Discussed case with Dr. Deluca. Agrees to observation. Requesting consult to cardiology. 2315: Notified by nursing staff that the patient left AGAINST MEDICAL ADVICE. Did not give a specific reason why. Not in the room when I went to go discuss. - Lab Data Result diagrams: 05/10/17 20:50 05/10/17 20:50 Lab Results 05/10/17 05/10/17 05/10/17 Range/Units 20:50 20:50 20:50 WBC 11.5 H (3.8-10.6) k/uL RBC 4.76 (3.80-5.40) m/uL Hgb 12.0 (11.4-16.0) gm/dL Hct 38.1 (34.0-46.0) % MCV 80.0 (80.0-100.0) fL MCH 25.3 (25.0-35.0) pg MCHC 31.6 (31.0-37.0) g/dL RDW 15.2 (11.5-15.5) % Plt Count 264 (150-450) k/uL Neutrophils % 71 % Lymphocytes % 18 % Monocytes % 6 % Eosinophils % 3 % Basophils % 1 % Neutrophils # 8.2 H (1.3-7.7) k/uL Lymphocytes # 2.1 (1.0-4.8) k/uL Monocytes # 0.7 (0-1.0) k/uL Eosinophils # 0.3 (0-0.7) k/uL Basophils # 0.1 (0-0.2) k/uL Hypochromasia Slight Sodium 139 (137-145) mmol/L Potassium 4.6 (3.5-5.1) mmol/L Chloride 107 (98-107) mmol/L Carbon Dioxide 21 L (22-30) mmol/L Anion Gap 11 mmol/L BUN 19 H (7-17) mg/dL Creatinine 0.73 (0.52-1.04) mg/dL Est GFR (MDRD) Af Amer >60 (>60 ml/min/1.73 sqM) Est GFR (MDRD) Non-Af >60 (>60 ml/min/1.73 sqM) Glucose 87 (74-99) mg/dL Calcium 9.1 (8.4-10.2) mg/dL Total Bilirubin 0.4 (0.2-1.3) mg/dL AST 27 (14-36) U/L ALT 39 (9-52) U/L Alkaline Phosphatase 99 (38-126) U/L Troponin I <0.012 (0.000-0.034) ng/mL Total Protein 6.5 (6.3-8.2) g/dL Albumin 3.9 (3.5-5.0) g/dL Disposition Clinical Impression: Chest pain, Chronic back pain, Left against medical advice Disposition: ADMITTED IP TO THIS [facility] Condition: Fair Referrals: Sheela Rojas MD [Primary Care Provider] - 1-2 days Decision to Admit Reason: Admit from EC
[2017-05-10 21:14] LABS: Basophils # (A) 0.1 k/uL (0-0.2); Basophils % (A) 1 %; CH 25.3; CHCM 31.8; Eosinophils # (A) 0.3 k/uL (0-0.7); Eosinophils % (A) 3 %; HCT 38.1 % (34.0-46.0); HDW 2.65; Hypochromasia Slight; Luc # (Auto) 0.13; Luc % (Auto) 1; Lymphocytes # (A) 2.1 k/uL (1.0-4.8); Lymphocytes % (A) 18 %; MCH 25.3 pg (25.0-35.0); MCHC 31.6 g/dL (31.0-37.0); Mean Platelet Volume 7.3; Monocytes # (A) 0.7 k/uL (0-1.0); Monocytes % (A) 6 %; Neutrophils # (A) 8.2 k/uL (1.3-7.7); Neutrophils % (A) 71 %; RBC 4.76 m/uL (3.80-5.40); RDW 15.2 % (11.5-15.5); WBC 11.5 k/uL (3.8-10.6); WBC (Perox) 11.22
[2017-05-10 21:25] LABS: ALT 39 U/L (9-52); AST 27 U/L (14-36); Alkaline Phosphatase 99 U/L (38-126); Anion Gap 11 mmol/L; Blood Urea Nitrogen 19 mg/dL (7-17); Calcium 9.1 mg/dL (8.4-10.2); Carbon Dioxide 21 mmol/L (22-30); Chloride 107 mmol/L (98-107); Glucose 87 mg/dL (74-99); Non-African American GFR(MDRD) >60 (>60 ml/min/1.73 sqM); Potassium 4.6 mmol/L (3.5-5.1); Sodium 139 mmol/L (137-145); Total Bilirubin 0.4 mg/dL (0.2-1.3); Total Protein 6.5 g/dL (6.3-8.2)
[2017-05-10 21:56] VITALS: BP 162/85; PULSE 82
[2017-05-10] MEDS ORDERED: ASPIRIN 81 MG CHEW PO STA (22:02)
[2017-05-10] MEDS ORDERED: HYDROmorphone 1 MG/ML 1 ML SYRINGE IVP STA (22:02)
[2017-05-10] MEDS ORDERED: NALOXONE 0.4 MG/ML 1 ML VIAL IV PRN (22:43)
== END 2017-05-10 22:58 | disposition left against medical advice (07) ==
LOC: EC 19:44 → UNDOADMOB 22:45 → 3OBS 22:45 → EC 22:58
DX: R07.9 Chest pain, unspecified (principal); M54.9 Dorsalgia, unspecified; R11.0 Nausea; G89.29 Other chronic pain; K58.9 Irritable bowel syndrome, unspecified; M19.90 Unspecified osteoarthritis, unspecified site; Z79.899 Other long term (current) drug therapy; Z88.5 Allergy status to narcotic agent; Z91.040 Latex allergy status; Z88.2 Allergy status to sulfonamides; Z88.8 Allergy status to other drugs, medicaments and biological substances; Z91.041 Radiographic dye allergy status; Z88.6 Allergy status to analgesic agent; Z91.048 Other nonmedicinal substance allergy status; Z87.19 Personal history of other diseases of the digestive system
CPT/HCPCS: 99284; 96374; 96375; 36415; 93005; 80053; 84484; 85025; J1885; J1170; J7512

== ENCOUNTER 2019-03-15 12:27 | Observation (INO) | payer OTHER ==
[2019-03-15 12:51] LABS: Basophils % (A) 0 %; Eosinophils # (A) 0.2 k/uL (0-0.7); Eosinophils % (A) 3 %; HCT 44.9 % (34.0-46.0); HGB 14.3 gm/dL (11.4-16.0); Lymphocytes # (A) 1.9 k/uL (1.0-4.8); Lymphocytes % (A) 25 %; MCH 27.5 pg (25.0-35.0); MCHC 31.8 g/dL (31.0-37.0); MCV 86.5 fL (80.0-100.0); Mean Platelet Volume 7.5; Monocytes # (A) 0.3 k/uL (0-1.0); Monocytes % (A) 4 %; Neutrophils # (A) 4.9 k/uL (1.3-7.7); Neutrophils % (A) 66 %; Platelet Count 235 k/uL (150-450); RBC 5.19 m/uL (3.80-5.40); WBC 7.4 k/uL (3.8-10.6)
[2019-03-15] MEDS ORDERED: ONDANSETRON 4 MG/2 ML VIAL IVP STA (13:00)
[2019-03-15] MEDS ORDERED: MORPHINE SULFATE 2 MG/ML SYRINGE IVP ONE (13:00)
[2019-03-15 13:02] LABS: ALT 58 U/L (9-52); AST 39 U/L (14-36); Albumin 4.6 g/dL (3.5-5.0); Alkaline Phosphatase 103 U/L (38-126); Anion Gap 12 mmol/L; Blood Urea Nitrogen 19 mg/dL (7-17); Calcium 10.3 mg/dL (8.4-10.2); Carbon Dioxide 27 mmol/L (22-30); Chloride 102 mmol/L (98-107); Glucose 204 mg/dL (74-99); INR 0.9 (<1.2); Magnesium 1.7 mg/dL (1.6-2.3); Partial Thromboplastin Time 27.2 sec (22.0-30.0); Prothrombin Time 10.2 sec (9.0-12.0); Sodium 141 mmol/L (137-145); Total Bilirubin 1.3 mg/dL (0.2-1.3); Total Protein 7.4 g/dL (6.3-8.2)
--- NOTE | 2019-03-15 13:33 | ED ---
Chest Pain HPI - General Source: patient, RN notes reviewed Mode of arrival: ambulatory Limitations: no limitations <Bubba Maravilla - Last Filed: 03/15/19 14:31> <Jamar Wynne - Last Filed: 03/15/19 14:38> - General Chief Complaint: Chest Pain Stated Complaint: Chest Pain Time Seen by Provider: 03/15/19 12:33 - History of Present Illness Initial Comments: 58-year-old female presents emergency Department chief complaint of chest pain. Patient states started 2 hours prior arrival. Patient states it's centralized pain nonradiating. She states that she did have some shortness of breath that has resolved. Patient denies any nausea vomiting diarrhea constipation. Patient states that she was given nitro which helped the pain. Patient was also given aspirin by EMS. Patient states she currently takes Xarelto from prior blood clot. Patient denies any fevers or chills, URI symptoms. Patient does have chronic pain from arthritis. (Bubba Maravilla) - Related Data Home Medications Medication Instructions Recorded Confirmed Linaclotide [Linzess] 290 mcg PO DAILY 03/19/17 03/15/19 ALPRAZolam [Xanax] 1 mg PO BID PRN 03/15/19 03/15/19 Albuterol Inhaler [Ventolin Hfa 1 - 2 puff INHALATION RT-Q6H PRN 03/15/19 03/15/19 Inhaler] Amitriptyline HCl [Elavil] 100 mg PO HS 03/15/19 03/15/19 Atorvastatin [Lipitor] 20 mg PO HS 03/15/19 03/15/19 Baclofen [Lioresal] 10 mg PO TID 03/15/19 03/15/19 Bisacodyl [Dulcolax] 10 mg PO DAILY PRN 03/15/19 03/15/19 Cetirizine HCl [Zyrtec] 10 mg PO DAILY PRN 03/15/19 03/15/19 Docusate [Colace] 100 mg PO BID PRN 03/15/19 03/15/19 Fluticasone Nasal [place] [Flonase 1 spray EA NOSTRIL DAILY 03/15/19 03/15/19 Nasal [place]] Hydrocodone/Acetaminophen [[place] 1 tab PO Q6HR 03/15/19 03/15/19 5-325] Lisinopril [Prinivil] 10 mg PO DAILY 03/15/19 03/15/19 Metaxalone [Skelaxin] 800 mg PO TID PRN 03/15/19 03/15/19 Metoprolol/Hydrochlorothiazide 1 tab PO DAILY 03/15/19 03/15/19 [Lopressor Hct 100-25 mg Tab] Montelukast Sodium [Singulair] 10 mg PO HS 03/15/19 03/15/19 Polyethylene Glycol 3350 [Miralax] 17 gm PO DAILY PRN 03/15/19 03/15/19 Pregabalin [Lyrica] 150 mg PO BID 03/15/19 03/15/19 Rivaroxaban [Xarelto] 10 mg PO DAILY 03/15/19 03/15/19 metFORMIN HCL [Glucophage] 500 mg PO BID 03/15/19 03/15/19 Allergies Allergy/AdvReac Type Severity Reaction Status Date / Time diclofenac sodium Allergy Rash/Hives Verified 03/15/19 13:22 [From Voltaren] hydrocodone bitartrate Allergy Unknown Verified 03/15/19 13:22 [From Vicodin] Iodinated Contrast- Oral and Allergy Swelling Verified 03/15/19 13:22 IV Dye [Iodinated Contrast Media - IV Dye] latex Allergy Rash/Hives Verified 03/15/19 13:22 lorazepam Allergy Dyspnea Verified 03/15/19 13:22 Sulfa (Sulfonamide Allergy Anaphylaxis Verified 03/15/19 13:22 Antibiotics) temazepam Allergy Rash/Hives Verified 03/15/19 13:22 tramadol Allergy Rash/Hives Verified 03/15/19 13:22 trazodone Allergy Rash/Hives Verified 03/15/19 13:22 zolpidem tartrate Allergy Itching Verified 03/15/19 13:22 [From Ambien] diazepam [From Valium] AdvReac Itching Verified 03/15/19 13:22 povidone-iodine AdvReac Rash/Hives Verified 03/15/19 13:22 [From Betadine] soap [From Betadine] AdvReac Rash/Hives Verified 03/15/19 13:22 Review of Systems ROS Other: All systems not noted in ROS Statement are negative. <Bubba Maravilla - Last Filed: 03/15/19 14:31> ROS Other: All systems not noted in ROS Statement are negative. <Jamar Wynne - Last Filed: 03/15/19 14:38> ROS Statement: Those systems with pertinent positive or pertinent negative responses have been documented in the HPI. EKG Findings - EKG Comments: EKG Findings:: EKG performed at 12:33 sinus tachycardia rate of 119. pr 170 QRS 86 QT/QTC 328/461 <Bubba Maravilla - Last Filed: 03/15/19 14:31> Past Medical History Past Medical History: Asthma, Myocardial Infarction ([place]), Osteoarthritis (OA) Additional Past Medical History / Comment(s): chronic back pain, constipation, ibs, sciatica, on metformin for weight loss History of Any Multi-Drug Resistant Organisms: None Reported Past Surgical History: Appendectomy, Cholecystectomy, Heart Catheterization, Orthopedic Surgery Additional Past Surgical History / Comment(s): arm and lower leg, facial sx, Past Anesthesia/Blood Transfusion Reactions: No Reported Reaction Past Psychological History: Anxiety, Panic Disorder, PTSD Smoking Status: Never smoker Past Alcohol Use History: None Reported Past Drug Use History: None Reported - Past Family History Father Family Medical History: Myocardial Infarction ([place]) Additional Family Medical History / Comment(s): 4 bypasses, pacemaker Mother Family Medical History: No Reported History <Bubba Maravilla - Last Filed: 03/15/19 14:31> General Exam Limitations: no limitations General appearance: alert, in no apparent distress Head exam: Present: atraumatic, normocephalic, normal inspection Eye exam: Present: normal appearance, PERRL, EOMI. Absent: scleral icterus, conjunctival injection, periorbital swelling ENT exam: Present: normal exam, normal oropharynx, mucous membranes moist Neck exam: Present: normal inspection, full ROM. Absent: tenderness, meningismus, lymphadenopathy Respiratory exam: Present: normal lung sounds bilaterally. Absent: respiratory distress, wheezes, rales, rhonchi, stridor Cardiovascular Exam: Present: regular rate, normal rhythm, normal heart sounds. Absent: systolic murmur, diastolic murmur, rubs, gallop, clicks Neurological exam: Present: alert Skin exam: Present: warm, dry, intact, normal color. Absent: rash <Bubba Maravilla - Last Filed: 03/15/19 14:31> Course <Jamar Wynne - Last Filed: 03/15/19 14:38> Vital Signs 03/15/19 12:28 Temperature 97.9 F Pulse Rate 103 H Respiratory 18 Rate Blood Pressure 109/89 O2 Sat by Pulse 98 Oximetry - Reevaluation(s) Reevaluation #1: 03/15/19 14:38 PA supervision: I personally evaluated this case and did review the EKG and lab work. Patient be admitted case is discussed with Dr. Centeno. (Jamar Wynne) Chest Pain MDM <Bubba Maravilla - Last Filed: 03/15/19 14:31> - MDM 58-year-old female presents emergency Department for chest pain. Patient has no elevation in her troponin though she does have underlying cardiac disease. Patiently admitted for cardiac rule out. (Bubba Maravilla) Disposition <Bubba Maravilla - Last Filed: 03/15/19 14:31> <Jamar Wynne - Last Filed: 03/15/19 14:38> Clinical Impression: Chest pain Disposition: ADMITTED IP TO THIS HOSP Condition: Fair Referrals: Sheela Rojas MD [Primary Care Provider] - 1-2 days
--- NOTE | 2019-03-15 14:04 | XR ---
EXAMINATION TYPE: XR chest 2V DATE OF EXAM: 03/15/2019 COMPARISON: Prior chest x-ray 07/06/2016 HISTORY: Chest pain, asthma TECHNIQUE: Frontal and lateral views of the chest are obtained. FINDINGS: There is no focal air space opacity, pleural effusion, or pneumothorax seen. The cardiac silhouette size is within normal limits. The osseous structures are intact. Postop changes are note d to the right shoulder. IMPRESSION: No acute cardiopulmonary process.
[2019-03-15] MEDS ORDERED: HEPARIN SODIUM,PORCINE 5,000 UNIT/ML 1 ML VIAL IV ONE (14:32)
[2019-03-15] MEDS ORDERED: NITROGLYCERIN SL TABS 0.4 MG TAB SUBLINGUAL PRN (14:32)
[2019-03-15] MEDS ORDERED: HEPARIN SOD,PORK IN 0.45% NACL 25,000 UNIT in 0.45% NACL 1 250ML.BAG IV SCH (14:45)
[2019-03-15 15:24] VITALS: RESP 18
[2019-03-15] MEDS ORDERED: DOCUSATE 100 MG CAP PO PRN (15:55)
[2019-03-15] MEDS ORDERED: ALPRAZolam 1 MG TAB PO PRN (15:55)
[2019-03-15] MEDS ORDERED: BISACODYL 5 MG TABLET.DR PO PRN (15:55)
[2019-03-15] MEDS ORDERED: POLYETHYLENE GLYCOL 3350 17 GM POWD.PACK PO PRN (15:55)
[2019-03-15] MEDS ORDERED: HYDROcodone/APAP 5-325MG 1 EACH TAB PO PRN (15:55)
[2019-03-15 16:57] LABS: Glucose,Whole Blood 171 mg/dL (75-99)
[2019-03-15] MEDS: BACLOFEN 10 MG TAB PO SCH ×2 (17:37→22:16)
[2019-03-15] MEDS: metFORMIN 500 MG TAB PO SCH (17:37)
[2019-03-15 20:30] LABS: Glucose,Whole Blood 169 mg/dL (75-99)
[2019-03-15] MEDS ORDERED: ATORVASTATIN 20 MG TAB PO SCH (21:00)
[2019-03-15] MEDS ORDERED: AMITRIPTYLINE HCL 50 MG TAB PO SCH (21:00)
[2019-03-15] MEDS ORDERED: MONTELUKAST 10 MG TAB PO SCH (21:00)
[2019-03-15] MEDS ORDERED: INSULIN ASPART (NovoLOG) 100 UNIT/ML VIAL SQ ONE (21:44)
[2019-03-15] MEDS: PREGABALIN 75 MG CAP PO SCH (22:16)
[2019-03-15] MEDS ORDERED: LORATADINE 10 MG TAB PO PRN (22:47)
[2019-03-15] MEDS ORDERED: ALBUTEROL NEBULIZED 2.5 MG/3 ML INHALATION PRN (22:47)
[2019-03-15] MEDS ORDERED: METAXALONE 800 MG PO PRN (22:47)
[2019-03-16 03:22] LABS: Basophils % (A) 1 %; Eosinophils # (A) 0.3 k/uL (0-0.7); Eosinophils % (A) 5 %; HCT 39.9 % (34.0-46.0); HGB 13.1 gm/dL (11.4-16.0); Lymphocytes # (A) 2.3 k/uL (1.0-4.8); Lymphocytes % (A) 39 %; MCH 28.3 pg (25.0-35.0); MCHC 32.8 g/dL (31.0-37.0); MCV 86.4 fL (80.0-100.0); Mean Platelet Volume 8.2; Monocytes # (A) 0.3 k/uL (0-1.0); Monocytes % (A) 5 %; Neutrophils # (A) 2.9 k/uL (1.3-7.7); Neutrophils % (A) 49 %; Platelet Count 199 k/uL (150-450); RBC 4.62 m/uL (3.80-5.40); RDW 14.4 % (11.5-15.5); WBC 5.8 k/uL (3.8-10.6)
[2019-03-16 03:29] LABS: Anion Gap 12 mmol/L; Blood Urea Nitrogen 15 mg/dL (7-17); Calcium 9.6 mg/dL (8.4-10.2); Carbon Dioxide 24 mmol/L (22-30); Chloride 103 mmol/L (98-107); Cholesterol 104 mg/dL (<200); Glucose 161 mg/dL (74-99); HDL Cholesterol 28 mg/dL (40-60); LDL Cholesterol,Calculated 54 mg/dL (0-99); Potassium 3.2 mmol/L (3.5-5.1); Sodium 139 mmol/L (137-145); Triglycerides 109 mg/dL (<150)
[2019-03-16 06:40] LABS: Glucose,Whole Blood 146 mg/dL (75-99)
--- NOTE | 2019-03-16 07:33 | HP ---
HISTORY AND PHYSICAL DATE OF SERVICE: 03/15/2019 CHIEF COMPLAINT: Chest pain. HISTORY OF PRESENT ILLNESS: This is a 58-year-old woman with a past medical history of multiple medical problems including history of asthma, CAD, DVT, history of fibromyalgia, history of myocardial infarction, DJD, history of DVT, history of cholecystectomy, history of anxiety, depression, panic attacks, PTSD being followed by Dr. Sheela Rojas and the patient is complaining of chest pain. The pain was felt in the anterior part of the chest which was not radiating with a pressure-type feeling and also some shortness of breath. There is no associated nausea or any certain palpitation at this time. Patient came to [facility], admitted for further evaluation and treatment. Patient apparently had a complicated medical history. The patient apparently was evaluated in the [facility] and while in the [facility], patient had a chest pain evaluated in the [facility] and the patient apparently had angioplasty and that resulted in a false- positive testing according to the family, but not available at this time. The patient also ended up with blood clot later. Currently, the patient is also under tremendous stress because patient has been homeless at this time. There were living in a fci, but there was some issues with a wheelchair accesss and currently they are also living in a motel. However, they are also looking for an apartment at this time. There is no history of fever or rigors. No history of headache, loss of consciousness, seizures at this time. PAST MEDICAL HISTORY: Asthma, CAD, DVT, fibromyalgia, myocardial infarction, DJD, history of DVT, history of fibromyalgia, also cholecystectomy, appendectomy, anxiety, panic disorder, PTSD. MEDICATIONS: Prior to admission include home medications are: 1. MiraLAX 17 g p.o. daily p.r.n. 2. Celexa 800 mg t.i.d. p.r.n. 3. [place] 5 mg q.6 p.r.n. 4. Elavil 100 mg q.h.s. 5. Ventolin 1 to 2 puffs q.6 p.r.n. 6. Xanax 1 mg b.i.d. p.r.n. 7. Colace 100 mg b.i.d. p.r.n. 8. Zyrtec 10 mg daily p.r.n. 9. Dulcolax 10 mg daily p.r.n. 10.Lipitor 20 mg q.h.s. 11.Glucophage 500 mg p.o. b.i.d. 12.Lopressor 100/25 mg p.o. daily. 13.Prinivil 10 mg p.o. daily. 14.Flonase 1 spray daily. 15.Xarelto 10 mg p.o. daily. 16.Lyrica 150 mg p.o. b.i.d. 17.Singular 10 mg q.h.s. 18.Linzess 290 mcg p.o. daily. 19.Lioresal 10 mg p.o. t.i.d. ALLERGIES: Multiple. DICLOFENAC, HYDROCODONE, IODINATED CONTRAST DYE, LATEX, SULFA, TEMAZEPAM, ULTRAM, TRAZODONE, AMBIEN, VALIUM, BETADINE. FAMILY HISTORY: History of myocardial infarction in the father and father had CABG and pacemaker. SOCIAL HISTORY: No history of smoking, no history of alcohol intake. 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 REVIEW OF SYSTEMS: ENT: No diminished vision or hearing. CARDIOVASCULAR SYSTEM: As mentioned earlier. RESPIRATORY: As mentioned earlier. GI: No nausea. : No dysuria. NERVOUS SYSTEM: No numbness or weakness. ALLERGY/IMMUNOLOGY: No asthma. MUSCULOSKELETAL: As mentioned earlier. HEMATOLOGY: No history of anemia. ENDOCRINE: No history of diabetes or hypothyroidism. CONSTITUTIONAL: As mentioned earlier. DERMATOLOGY: Negative. RHEUMATOLOGY: Negative. PSYCHIATRY: As mentioned earlier. PHYSICAL EXAMINATION: Patient is alert and oriented x3. Pulse is 100, blood pressure is 117/74, respiration 18, temperature is 98.0, pulse ox 94% on room air. HEENT: Conjunctivae normal. Oral mucosa moist. NECK: No jugular venous distention. No lymph node enlargement. CARDIOVASCULAR: S1, S2, muffled, no S3, no S4. RESPIRATION: Breath sounds diminished at the bases, no rhonchi, no crackles. ABDOMEN: Soft, nontender. No mass palpable. LEGS: No edema. No swelling. NERVOUS SYSTEM: Higher functions as mentioned earlier. Moves all 4 limbs, no focal motor deficits. LYMPHATICS: No lymph node enlargement in the neck or axillae. SKIN: No ulcer, rash, bleeding. JOINTS: No active deformity or arthropathy. LABS: CBC within normal limits. PT, INR normal. Glucose 204, calcium is 10.3, AST, ALT 39 and 58. ASSESSMENT: 1. Chest pain for evaluation, rule out coronary artery disease, possible unstable angina. 2. Increased AST, ALT of undetermined origin. 3. Asthma. 4. History of coronary artery disease. 5. History of deep venous thrombosis. 6. History of fibromyalgia. 7. History of myocardial infarction. 8. History of degenerative joint disease. 9. History of irritable bowel syndrome. 10.History of Linares's cyst. 11.History of constipation. 12.History of appendectomy. 13.History of cholecystectomy. 14.History of cardiac catheterization. 15.History of anxiety, panic disorder, PTSD. 16.Social issues. RECOMMENDATION: In this 58-year-old woman who presented with multiple complex medical issues, will monitor the patient closely, continue with the current medication. Rule out myocardial infarction. Cardiology consultation and possible stress test. Will try to obtain the previous records. Otherwise, resume the home medications. Prognosis guarded because of multiple complex medical issues. Further recommendations to follow. A copy of this will be forwarded to Dr. Sheela Rojas, who is the primary physician. MMODL / IJN: [id number] / HERMAN
[2019-03-16 08:47] LABS: D-Dimer 0.44 mg/L FEU (<0.60); Partial Thromboplastin Time 47.7 sec (22.0-30.0)
[2019-03-16] MEDS ORDERED: HYDROCHLOROTHIAZIDE 25 MG TAB PO SCH (09:00)
[2019-03-16] MEDS ORDERED: LISINOPRIL 10 MG TAB PO SCH (09:00)
[2019-03-16] MEDS ORDERED: FLUTICASONE 50MCG/SPRAY NASAL 16GM EA NOSTRIL SCH (09:00)
[2019-03-16] MEDS ORDERED: METOPROLOL TARTRATE 50 MG TAB PO SCH (09:00)
[2019-03-16] MEDS ORDERED: NON-FORMULARY DRUG (Linaclotide [Linzess] 290 MCG) PO SCH (09:00)
[2019-03-16] MEDS ORDERED: ASPIRIN 325 MG TAB PO SCH (09:00)
[2019-03-16] MEDS: INSULIN ASPART (NovoLOG) 100 UNIT/ML VIAL SQ SCH ×2 (09:25→12:57)
[2019-03-16] MEDS: metFORMIN 500 MG TAB PO SCH (09:31)
[2019-03-16] MEDS: PREGABALIN 75 MG CAP PO SCH (09:32)
[2019-03-16] MEDS: BACLOFEN 10 MG TAB PO SCH (09:33)
--- NOTE | 2019-03-16 10:22 | ECHOF ---
Referral Reason:chest pain MEASUREMENTS -------- HEIGHT: 170.2 cm WEIGHT: 106.6 kg BP: RVIDd: 3.0 cm (< 3.3) IVSd: 1.0 cm (0.6 - 1.1) LVIDd: 3.9 cm (3.9 - 5.3) LVPWd: 1.1 cm (0.6 - 1.1) IVSs: 1.8 cm LVIDs: 1.8 cm LVPWs: 1.8 cm Ao Diam: 3.4 cm (2.0 - 3.7) AV Cusp: 2.0 cm (1.5 - 2.6) LA Diam: 3.1 cm (2.7 - 3.8) MV EXCURSION: 14.751 mm (> 18.000) MV EF SLOPE: 69 mm/s (70 - 150) EPSS: 0.4 cm MV E Darion: 0.79 m/s MV DecT: 147 ms MV A Darion: 0.45 m/s MV E/A Ratio: 1.74 RAP: 5.00 mmHg RVSP: 21.70 mmHg FINDINGS -------- Sinus rhythm. This was a technically adequate study. The left ventricular size is normal. Left ventricular wall thickness is normal. Overall left vent ricular systolic function is normal with, an EF between 60 - 65 %. Possible LVOT Obstruction with a max gradient of 16 mmHg The right ventricle is normal in size. Normal LA size by volume 22+/-6 ml/m2. The right atrial size is normal. Interatrial and interventricular septum intact. The aortic valve is trileaflet and appears structurally normal. There is trace mitral regurgitation. No regurgitation noted Right ventricular systolic pressure is normal at < 35 mmHg. There is no ev idence of pulmonary hypertension. There is no pulmonic regurgitation present. The aortic root size is normal. IVC Not well visulized. There is no pericardial effusion. CONCLUSIONS -------- 1. Sinus rhythm. 2. This was a technically adequate study. 3. The left ventricular size is normal. 4. Left ventricular wall thickness is normal. 5. Overall left ventricular systolic function is normal with, an EF between 60 - 65 %. 6. Possible LVOT Obstruction with a max gradient of 16 mmHg. 7. The right ventricle is normal in size. 8. Normal LA size by volume 22+/-6 ml/m2. 9. The right atrial size is normal. 10. Interatrial and interventricular septum intact. 11. The aortic valve is trileaflet and appears structurally normal. 12. There is trace mitral regurgitation. 13. No regurgitation noted 14. Right ventricular systolic pressure is normal at < 35 mmHg. 15. There is no evidence of pulmonary hypertension. 16. There is no pulmonic regurgitation present. 17. The aortic root size is normal. 18. IVC Not well visulized. 19. There is no pericardial effusion. HYPERBARIC TECHNICIAN: Karen Joy RDCS
[2019-03-16] MEDS ORDERED: POTASSIUM CHLORIDE ER 20 MEQ TAB.ER PO STA (10:54)
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
[2019-03-16 11:51] LABS: Glucose,Whole Blood 172 mg/dL (75-99)
[2019-03-16 12:07] VITALS: BP 93/62; TEMP 98.5
[2019-03-16 12:11] VITALS: PULSE 84
--- NOTE | 2019-03-16 13:29 | DS ---
DISCHARGE SUMMARY DATE OF SERVICE: 03/16/2019 FINAL DIAGNOSES: 1. Chest pain possibly musculoskeletal, myocardial infarction ruled out.. 2. Increased AST, ALT of undetermined origin. 3. Asthma. 4. History of coronary artery disease. 5. History of deep vein thrombosis. 6. History of fibromyalgia. 7. History of myocardial infarction. 8. History of degenerative joint disease. 9. History of irritable bowel syndrome. 10.History of Linares's cyst. 11.History of constipation. 12.History of appendectomy. 13.History of cholecystectomy. 14.History of cardiac catheterization. 15.History of anxiety, panic disorder and posttraumatic stress disorder. 16.Social stressors. DISCHARGE DISPOSITION: The patient will be discharged in stable condition with guarded prognosis. HISTORY OF PRESENT ILLNESS: This 58-year-old woman with past medical history of multiple medical problems admitted with chest pain, myocardial infarction ruled out. Cardiology saw the patient, cleared the pain for discharge. On exam, vitals are stable. CARDIOVASCULAR: S1, S2 muffled. ABDOMEN: Soft. NERVOUS SYSTEM: No focal deficits. I recommend the patient to follow up closely with Cardiology and as well as primary physician with repeat labs. The LFTs were mildly elevated at 39 and 58. DISCHARGE ADVICE AND MEDICATIONS: 1. Diet is cardiac. 2. Activity limited until followup. 3. Follow up with Dr. Sheela Rojas in 2 to 3 days. 4. Follow up with Dr. Valencia as advised in 2 weeks. Medications are: 1. Colace 100 mg b.i.d. p.r.n. 2. Dulcolax 10 mg daily p.r.n. 3. Elavil 100 mg p.o. q.h.s. 4. Flonase 1 spray daily. 5. Glucophage 500 mg p.o. b.i.d. 6. Linzess 290 mcg p.o. daily. 7. Lioresal 10 mg p.o. t.i.d. 8. Lipitor 20 mg q.h.s. 9. Lopressor 100/25 mg p.o. daily. 10.Lyrica 150 mg p.o. b.i.d. 11.MiraLAX 17 grams daily p.r.n. 12.[place] 5 mg q.6 p.r.n. 13.Prinivil 10 mg p.o. daily. 14.Singulair 10 mg q.h.s. 15.Skelaxin 800 mg t.i.d. p.r.n. 16.Ventolin one to two puffs q.6 p.r.n. 17.Xanax 1 mg p.o. b.i.d. p.r.n. 18.Xarelto 10 mg p.o. daily. 19.Zyrtec 10 mg p.o. daily p.r.n. Once again, the patient will be discharged in stable condition with guarded prognosis. MMODL / IJN: [id number] /
== END 2019-03-16 15:06 | disposition home or self-care (01) ==
LOC: EC 12:27 → 1SOBS 14:37
PROVIDERS: ADMIT Hospitalist; ATTEND Hospitalist
DX: R07.89 Other chest pain (principal); E78.5 Hyperlipidemia, unspecified; F41.0 Panic disorder [episodic paroxysmal anxiety]; F43.10 Post-traumatic stress disorder, unspecified; G89.29 Other chronic pain; I10 Essential (primary) hypertension; I25.10 Atherosclerotic heart disease of native coronary artery without angina pectoris; J45.909 Unspecified asthma, uncomplicated; K58.9 Irritable bowel syndrome, unspecified; M19.90 Unspecified osteoarthritis, unspecified site; M46.90 Unspecified inflammatory spondylopathy, site unspecified; M79.7 Fibromyalgia; Z59.0 Homelessness; Z86.718 Personal history of other venous thrombosis and embolism; Z90.49 Acquired absence of other specified parts of digestive tract; Z98.61 Coronary angioplasty status; I25.2 Old myocardial infarction; Z79.01 Long term (current) use of anticoagulants; Z79.84 Long term (current) use of oral hypoglycemic drugs; Z79.899 Other long term (current) drug therapy; Z88.2 Allergy status to sulfonamides; Z88.8 Allergy status to other drugs, medicaments and biological substances; Z91.041 Radiographic dye allergy status; Z91.040 Latex allergy status; Z82.49 Family history of ischemic heart disease and other diseases of the circulatory system
CPT/HCPCS: 96366 ×2; 96376; 96365; 96375; 99285; 36415; 93005; 93306; 85379; 80061; 80053; 80048; 83735; 84484 ×2; 85025 ×2; 85610; 85730 ×2; 71046; G0378 ×2; J1644 ×2; J2405; J2270

== ENCOUNTER 2019-05-24 | Emergency (ER) | payer OTHER ==
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
== END 2019-05-25 01:48 | disposition home or self-care (01) ==
CPT/HCPCS: 82075; 99283

== ENCOUNTER 2019-05-24 16:47 | Emergency (ER) | payer OTHER ==
[2019-05-24 16:56] VITALS: RESP 18
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
--- NOTE | 2019-05-24 18:01 | US ---
EXAMINATION TYPE: US venous doppler duplex LE LT DATE OF EXAM: 05/24/2019 5:49 PM COMPARISON: NONE CLINICAL HISTORY: Pain. Pain left leg x 1 week. Hx linares cyst. Hx DVT in right brachial vein 2018. Pt on blood thinners. SIDE PERFORMED: Left TECHNIQUE: The lower extremity deep venous system is examined utilizing real time linear array sonog shanon with graded compression, doppler sonography and color-flow sonography. VESSELS IMAGED: External Iliac Vein (EIV) Common Femoral Vein Deep Femoral Vein Greater Saphenous Vein * Femoral Vein Popliteal Vein Small Saphenous Vein * Proximal Calf Veins (* superficial vessels) FINDINGS: No evidence of DVT in veins imaged from prox calf veins to EIV. Complex area seen medial le ft knee measuring 4.7 x 3.7 x 1.3 cm, consistent with Linares cyst. IMPRESSION: 1. Negative for DVT, left lower extremity. 2. Popliteal Linares cyst noted.
[2019-05-24] MEDS ORDERED: KETOROLAC 60 MG/2 ML VIAL IM STA (18:40)
[2019-05-24 19:08] VITALS: BP 102/72; PULSE 65; TEMP 98.9
== END 2019-05-24 19:15 | disposition home or self-care (01) ==
LOC: EC 16:47
DX: M71.22 Synovial cyst of popliteal space [Baker], left knee (principal); J45.909 Unspecified asthma, uncomplicated; I25.10 Atherosclerotic heart disease of native coronary artery without angina pectoris; M79.7 Fibromyalgia; I25.2 Old myocardial infarction; K58.9 Irritable bowel syndrome, unspecified; K59.00 Constipation, unspecified; F41.0 Panic disorder [episodic paroxysmal anxiety]; Z88.2 Allergy status to sulfonamides; Z88.5 Allergy status to narcotic agent; Z88.6 Allergy status to analgesic agent; Z88.8 Allergy status to other drugs, medicaments and biological substances; Z91.040 Latex allergy status; Z91.041 Radiographic dye allergy status; Z91.048 Other nonmedicinal substance allergy status; Z79.01 Long term (current) use of anticoagulants; Z79.51 Long term (current) use of inhaled steroids; Z79.84 Long term (current) use of oral hypoglycemic drugs; Z79.899 Other long term (current) drug therapy; Z86.718 Personal history of other venous thrombosis and embolism; Z87.39 Personal history of other diseases of the musculoskeletal system and connective tissue; Z98.61 Coronary angioplasty status
CPT/HCPCS: 93971; 99284; 96372; J1885